=== PATIENT | female | born 1930 | race Caucasian/White ===

== ENCOUNTER 2017-10-04 10:15 | Emergency (ER) | payer OTHER ==
[2017-10-04 10:48] VITALS: BMI 20.3
--- NOTE | 2017-10-04 11:17 | PDOC ---
History of Present Illness - General Chief Complaint: Injury Stated Complaint: HIP AND KNEE PAIN Time Seen by Provider: 10/04/17 10:35 History Source: Patient - History of Present Illness Occurred: reports: this morning Pain Location: reports: lower extremity Method of Injury: Yes: fall Past History - Past Medical History Allergies/Adverse Reactions: Allergies Allergy/AdvReac Type Severity Reaction Status Date / Time levofloxacin [From Levaquin] Allergy diarrhea Verified 10/04/17 11:05 meperidine HCl [From Demerol] Allergy Verified 10/04/17 11:05 Home Medications: Ambulatory Orders Calcium Carbonate [Calcium] 600 mg PO DAILY 10/30/15 Docusate Sodium [Colace -] 100 mg PO HS 10/30/15 Donepezil HCl [Aricept] 5 mg PO HS 10/30/15 Labetalol HCl [Normodyne -] 100 mg PO BID 10/30/15 Acetaminophen [Tylenol] 650 mg PO DAILY 12/23/15 Atorvastatin Ca [Lipitor] 20 mg PO HS 10/04/17 Cyanocobalamin (Vitamin B-12) [Vitamin B-12] 2,000 mcg PO DAILY 10/04/17 Ibuprofen [Motrin -] 400 mg PO Q8H PRN 10/04/17 Magnesium Hydrox 2400MG/30Ml [Milk of Magnesia -] 30 ml PO HS 10/04/17 Memantine HCl [Namenda Xr] 14 mg PO DAILY 10/04/17 Multivitamin [One Daily] 1 each PO DAILY 10/04/17 Olanzapine [Zyprexa] 2.5 mg PO DAILY 10/04/17 Anemia: No Asthma: No Cancer: No Cardiac Disorders: Yes (6 STENTS) CVA: No COPD: No CHF: No Dementia: No Diabetes: No GI Disorders: No Disorders: No HTN: Yes Hypercholesterolemia: Yes Liver Disease: No Seizures: No Thyroid Disease: No - Surgical History Abdominal Surgery: No Appendectomy: Yes Cardiac Surgery: Yes Cholecystectomy: Yes Lung Surgery: No Neurologic Surgery: No Orthopedic Surgery: Yes (BILATERAL KNEE REPLACEMENTS) - Immunization History Immunization Up to Date: Yes - Suicide/Smoking/Psychosocial Hx Smoking Status: No Smoking History: Unknown if ever smoked Have you smoked in the past 12 months: No Number of Cigarettes Smoked Daily: 0 Information on smoking cessation initiated: No Hx Alcohol Use: No Drug/Substance Use Hx: No Substance Use Type: None Hx Substance Use Treatment: No Review of Systems - Review of Systems Constitutional: No: Fever Respiratory: No: Shortness of Breath Cardiac (ROS): No: Chest Pain ABD/GI: No: Nausea, Vomiting, Abdominal cramping Musculoskeletal: No: Back Pain, Joint Pain, Muscle Pain, Neck Pain Neurological: No: Headache, Dizziness *Physical Exam - Vital Signs Last Vital Signs Temp Pulse Resp BP Pulse Ox 97.9 F 70 20 109/65 100 10/04/17 10:31 10/04/17 10:31 10/04/17 10:31 10/04/17 10:31 10/04/17 10:31 - Physical Exam General Appearance: Yes: Appropriately Dressed. No: Apparent Distress HEENT: positive: Normal Voice Neck: positive: Supple. negative: Tender, Decreased range of motion Respiratory/Chest: positive: Lungs Clear, Normal Breath Sounds. negative: Respiratory Distress Cardiovascular: positive: Regular Rate, S1, S2 Gastrointestinal/Abdominal: positive: Soft. negative: Tender Extremity: positive: Normal Inspection, Other (no deformity). negative: Tender , Swelling Integumentary: positive: Dry, Warm Neurologic: positive: Alert, Normal Mood/Affect ED Treatment Course - LABORATORY CBC & Chemistry Diagram: 10/04/17 11:43 10/04/17 11:43 - RADIOLOGY Radiology Studies Ordered: Category Date Time Status HEAD CT WITHOUT CONTRAST [CT] Stat CT Scan 10/04/17 11:12 Ordered HIP & PELVIS-LEFT [RAD] Stat Radiology 10/04/17 11:12 Ordered HIP & PELVIS-RIGHT [RAD] Stat Radiology 10/04/17 11:12 Ordered Medical Decision Making - Medical Decision Making 10/04/17 11:15 87-year-old female past medical history of HTN, HLD, CAD, stents, Afib, not on blood thinners, hypertension, status post right hip surgery, mostly W/C bound, sent from group home complaining of left hip pain after fall from wheelchair this am per EMS. Unclear from group home chart if fall was witnessed. Patient has history of dementia and unable to give any details regarding fall, but states she is not currently in any pain. Denies hitting head. No headache , dizziness, visual changes, focal weakness, chest pain or shortness of breath See exam L hip pain s/p ?unwitnessed fall Stable and in NAD w/ unremarkable exam -XR hip -CTH -ekg/labs 10/04/17 14:08 UA remarkable for 3+ leuk trase and moderate bacteria. Rest of labs neg. CT head and xrays hips unremarkable. Will dc with antibiotics for presumed UTI ( no +ucx on record here). Stable to return back to the facility with aid who is currently at bedside 10/04/17 14:17 Nurse Solorzano from patient's group home contacted me regarding disposition. Labs and imaging discussed with staff. Staff reported that at some point, patient was complaining of left knee pain as well. I informed her that clinically, patient has no evidence of lower extremity fracture including knee and that there was no need to image knee at this time. States they will fill patient's prescription for the Keflex. *DC/Admit/Observation/Transfer Diagnosis at time of Disposition: Bacteriuria Fall Qualifiers: Encounter type: initial encounter Qualified Code(s): W19.XXXA - Unspecified fall, initial encounter - Discharge Dispostion Disposition: HOME Condition at time of disposition: Good - Referrals Referrals: Misha Dill MD [Primary Care Provider] - - Patient Instructions Printed Discharge Instructions: DI for Urinary Tract Infection (UTI), How to Prevent Falls Additional Instructions: Head CTand x-rays of both hips were negative. Her labs only revealed a possible UTI (3+LE and moderate bacteria on UA) and she will need Keflex twice a day for 7 days. We did send off a confirmatory urine culture which will take several days to come back. Please continue to follow up with her doctor - Post Discharge Activity
[2017-10-04 11:58] LABS: BASO % 0.9 % (0-2.0); EOS % 2.7 % (0-4.5); HEMATOCRIT 32.4 % (32.4-45.2); HEMOGLOBIN 10.8 GM/dL (10.7-15.3); LYMPH % 20.7 % (8-40); MCH 30.3 pg (25.7-33.7); MCHC 33.4 g/dl (32.0-36.0); MEAN CELL VOLUME 90.5 fl (80-96); MEAN PLT VOLUME 6.9 fl (7.5-11.1); MONO % 10.9 % (3.8-10.2); NEUT % 64.8 % (42.8-82.8); PLATELET COUNT 197 K/MM3 (134-434); RBC 3.58 M/mm3 (3.60-5.2); RDW 14.7 % (11.6-15.6); WHITE BLOOD COUNT 6.1 K/mm3 (4.0-10.0)
[2017-10-04 12:26] LABS: ANION GAP 6 (8-16); BILIRUBIN,TOTAL 0.4 mg/dL (0.2-1.0); BLOOD UREA NITROGEN 26 mg/dL (7-18); CALCIUM 8.6 mg/dL (8.5-10.1); CHLORIDE 109 mmol/L (98-107); CO2 28 mmol/L (21-32); CREATININE 0.7 mg/dL (0.55-1.02); GLUCOSE,RANDOM 119 mg/dL (74-106); POTASSIUM 4.1 mmol/L (3.5-5.1); SGOT/AST 16 U/L (15-37); SGPT/ALT 11 U/L (12-78); SODIUM 143 mmol/L (136-145)
[2017-10-04 12:29] LABS: ALK PHOS 98 U/L (45-117); TOT PROT 6.6 g/dl (6.4-8.2)
--- NOTE | 2017-10-04 13:45 | PDOC ---
*Physical Exam - Vital Signs Last Vital Signs Temp Pulse Resp BP Pulse Ox 97.9 F 70 20 109/65 100 10/04/17 10:31 10/04/17 10:31 10/04/17 10:31 10/04/17 10:31 10/04/17 10:31 ED Treatment Course - LABORATORY CBC & Chemistry Diagram: 10/04/17 11:43 10/04/17 11:43 - ADDITIONAL ORDERS Additional order review: Laboratory Results 10/04/17 11:43 Sodium 143 Potassium 4.1 Chloride 109 H Carbon Dioxide 28 Anion Gap 6 L BUN 26 H Creatinine 0.7 Creat Clearance w eGFR > 60 Random Glucose 119 H Calcium 8.6 Total Bilirubin 0.4 D AST 16 ALT 11 L Alkaline Phosphatase 98 Creatine Kinase 82 Troponin I < 0.02 Total Protein 6.6 Albumin 3.0 L 10/04/17 11:43 RBC 3.58 L MCV 90.5 MCHC 33.4 RDW 14.7 MPV 6.9 L Neutrophils % 64.8 Lymphocytes % 20.7 D Monocytes % 10.9 H Eosinophils % 2.7 Basophils % 0.9 Medical Decision Making - Medical Decision Making 10/04/17 13:43 Patient seen and evaluated with the nurse practitioner. I agree with the overall evaluation, assessment, and management with the following summary of visit: 87-year-old female from shelter status post unwitnessed fall from wheelchair. No LOC, question complaining of hip pain previously. Currently without complaints, exam shows no focal trauma Agree with workup including head CT and pelvis imaging Disposition accordingly *DC/Admit/Observation/Transfer Diagnosis at time of Disposition: Bacteriuria Fall Qualifiers: Encounter type: initial encounter Qualified Code(s): W19.XXXA - Unspecified fall, initial encounter - Discharge Dispostion Disposition: HOME Condition at time of disposition: Good - Referrals Referrals: Misha Dill MD [Primary Care Provider] - - Patient Instructions Printed Discharge Instructions: DI for Urinary Tract Infection (UTI), How to Prevent Falls Additional Instructions: Head CTand x-rays of both hips were negative. Her labs only revealed a possible UTI (3+LE and moderate bacteria on UA) and she will need Keflex twice a day for 7 days. We did send off a confirmatory urine culture which will take several days to come back. Please continue to follow up with her doctor - Post Discharge Activity
[2017-10-04 13:48] LABS: URINE APPEARANCE CLOUDY; URINE BILIRUBIN NEGATIVE (<2.0 mg/dL); URINE GLUCOSE (UA) NEGATIVE (NEGATIVE); URINE KETONE NEGATIVE (NEGATIVE); URINE NITRITE POSITIVE (NEGATIVE); URINE PROTEIN NEGATIVE (NEGATIVE); URINE UROBILINOGEN NEGATIVE mg/dL (0.2-1.0)
[2017-10-04 13:49] LABS: URINE COLOR DK YELLOW; URINE LEUK ESTERASE 3+ (NEGATIVE)
[2017-10-04 14:00] LABS: EPI CELLS RARE /HPF (FEW); URINE BACTERIA MODERATE /hpf (NONE SEEN); URINE MUCUS RARE
--- NOTE | 2017-10-04 14:46 | EKG ---
Test Reason : Blood Pressure : / mmHG Vent. Rate : 072 BPM Atrial Rate : 072 BPM P-R Int : 200 ms QRS Dur : 080 ms QT Int : 390 ms P-R-T Axes : 008 040 000 degrees QTc Int : 427 ms NORMAL SINUS RHYTHM NONSPECIFIC T WAVE ABNORMALITY inferior leads Confirmed by MD Marcelo, Paul ([id number]) on 10/04/2017 2:45:57 PM Referred By: Confirmed By:Paul Robertson MD
[2017-10-04 16:03] VITALS: BP 120/81; PULSE 74; TEMP 98
== END 2017-10-04 16:20 | disposition home or self-care (01) ==
LOC: JER 10:15
DX: S79.812A Other specified injuries of left hip, initial encounter (principal); R82.71 Bacteriuria; I25.10 Atherosclerotic heart disease of native coronary artery without angina pectoris; I10 Essential (primary) hypertension; Z95.5 Presence of coronary angioplasty implant and graft; E78.00 Pure hypercholesterolemia, unspecified; F03.90 Unspecified dementia, unspecified severity, without behavioral disturbance, psychotic disturbance, mood disturbance, and anxiety; I48.91 Unspecified atrial fibrillation; Z79.01 Long term (current) use of anticoagulants; Z96.653 Presence of artificial knee joint, bilateral; W05.0XXA Fall from non-moving wheelchair, initial encounter; Y93.89 Activity, other specified; Y92.128 Other place in nursing home as the place of occurrence of the external cause; Y99.8 Other external cause status
CPT/HCPCS: 36415; 70450-TC; 73523-TC-FY; 80053; 81003; 81015; 82550; 84484; 85025; 87086; 87186; 93005; 93010; 99284-25